=== PATIENT | female | born 1965 | race Caucasian/White ===

== ENCOUNTER 2017-09-09 10:19 | Outpatient (CLI) | payer BC | END 2017-09-09 10:20 | disposition home or self-care (01) | LOC: BICRAD 10:19 | PROVIDERS: ATTEND Podiatrist | DX: M25.572 Pain in left ankle and joints of left foot (principal); M19.072 Primary osteoarthritis, left ankle and foot ==

== ENCOUNTER 2019-02-08 09:21 | Outpatient (CLI) | payer BC | END 2019-02-08 09:22 | disposition home or self-care (01) | LOC: CTENTCT 09:21 | PROVIDERS: ATTEND Specialist | DX: J32.9 Chronic sinusitis, unspecified (principal) | CPT/HCPCS: 70486 ==

== ENCOUNTER 2019-02-11 10:55 | Day surgery (SDC) | payer BC ==
[2019-02-10 14:16] VITALS: BMI 27.1
[2019-02-11] MEDS ORDERED: PHENYLEPHRINE-NS 100 MCG/ML 10 ML SYRINGE ONE (12:05)
[2019-02-11] MEDS ORDERED: Succinylcholine Chloride 20 MG/ML 10 ml SYRINGE FS ONE (12:05)
[2019-02-11] MEDS ORDERED: Lidocaine 1% PF 5 ML VIAL ONE (12:05)
[2019-02-11] MEDS ORDERED: ePHEDrine 50 MG/ML VIAL ONE (12:05)
[2019-02-11] MEDS ORDERED: PROPOFOL 200 MG/20 ML VIAL ONE (12:05)
[2019-02-11] MEDS ORDERED: Dexamethasone 20 MG/5 ML VIAL ONE (12:05)
[2019-02-11] MEDS ORDERED: Ondansetron PF 4 MG/2 ML Vial ONE (12:05)
[2019-02-11] MEDS ORDERED: Labetalol HCl 100 MG/20 ML VIAL ONE (12:05)
[2019-02-11] MEDS ORDERED: Oxymetazoline HCl 0.05% ( 15 ML ) ONE ×2 (12:22→14:56)
[2019-02-11] MEDS ORDERED: Albuterol Sulfate 2.5 mg/3 ml Neb NEB SCH (13:00)
[2019-02-11] MEDS ORDERED: Midazolam HCl 2 mg/2 ml Vial ONE ×2 (14:28→15:56)
[2019-02-11] MEDS ORDERED: Fentanyl 250 MCG/5 ML VIAL ONE (14:51)
[2019-02-11] MEDS ORDERED: Lidocaine 1% w/Epinephrine 1:100K 20 ML VIAL ONE (14:56)
[2019-02-11] MEDS ORDERED: Fentanyl 100 MCG/2 ML VIAL ONE (15:34)
[2019-02-11] MEDS ORDERED: methylPREDNISolone Acetate 40 mg/ml Vial ONE (15:41)
[2019-02-11] MEDS ORDERED: Triamcinolone 40 MG/ML VIAL ONE (16:17)
[2019-02-11] MEDS ORDERED: Albuterol Sulfate 1.25 MG/3 ML NEB ONE (16:43)
[2019-02-11] MEDS ORDERED: HYDROcodone/Acetaminophen 5/325 mg Tablet ONE (17:48)
--- NOTE | 2019-02-11 23:41 | OP ---
DATE OF PROCEDURE: 02/11/2019 PREOPERATIVE DIAGNOSES: Chronic sinusitis, cystic fibrosis, left frontal sinusitis. POSTOPERATIVE DIAGNOSES: Chronic sinusitis, cystic fibrosis, left frontal sinusitis. PROCEDURES PERFORMED: 1. Stereotactic image guided surgery to left nasal endoscopy with frontal sinusotomy. 2. Lothrop procedure, left. PROCEDURE IN DETAIL: After consent was obtained, the patient was identified, brought to the operating room, and placed on the operating table in the supine position. General endotracheal anesthesia was obtained and the patient was positioned for surgery. The nose was decongested with topical decongestant followed by 1% lidocaine with 1:100,000 epinephrine infiltrated in the lateral nasal wall. We then under stereotactic image guidance, identified the infected portion of the superior ethmoid cavity and inferior aspect of the frontal sinus. We then entered the anterior face of that and encountered copious amounts of purulence. This was cultured and then there was significant amount of bony overgrowth, which was addressed with a DCR bur. We then copiously irrigated the sinus and ensured that the cavity was open. We facilitated opening the cavity with the wound and dilation catheter. We then placed steroid laden packing in the cavity to help prevent postoperative adhesion. The patient was awakened, extubated, and taken to the recovery room in stable condition prior to discharge home. Job ID: [id number]
--- NOTE | 2019-02-15 08:46 | EKG ---
Test Reason : PREOP Blood Pressure : / mmHG Vent. Rate : 078 BPM Atrial Rate : 078 BPM P-R Int : 118 ms QRS Dur : 086 ms QT Int : 372 ms P-R-T Axes : -19 002 039 degrees QTc Int : 424 ms Normal sinus rhythm Normal ECG When compared with ECG of 06-FEB-2017 08:04, No significant change was found Confirmed by DR. Ruth Ann SOTO ([id number]) on 02/15/2019 8:45:28 AM Referred By: NOAH Confirmed By:DR. Ruth Ann SOTO
== END 2019-02-11 18:50 | disposition home or self-care (01) ==
LOC: SDC 10:55
PROVIDERS: ATTEND Specialist
PROC: 09DT4ZZ Extraction of Left Frontal Sinus, Percutaneous Endoscopic Approach (ICD-10-PCS; principal; 2019-02-11)
PROC: 8E09XBZ Computer Assisted Procedure of Head and Neck Region (ICD-10-PCS; principal; 2019-02-11)
PROC: 099T8ZZ Drainage of Left Frontal Sinus, Via Natural or Artificial Opening Endoscopic (ICD-10-PCS; principal; 2019-02-11)
DX: J32.1 Chronic frontal sinusitis (principal); E84.9 Cystic fibrosis, unspecified; G44.209 Tension-type headache, unspecified, not intractable; E78.00 Pure hypercholesterolemia, unspecified; I10 Essential (primary) hypertension; J45.909 Unspecified asthma, uncomplicated; K21.9 Gastro-esophageal reflux disease without esophagitis; M19.90 Unspecified osteoarthritis, unspecified site; E11.9 Type 2 diabetes mellitus without complications; Z88.5 Allergy status to narcotic agent; Z91.041 Radiographic dye allergy status; Z88.1 Allergy status to other antibiotic agents; Z91.048 Other nonmedicinal substance allergy status; Z91.040 Latex allergy status; Z79.84 Long term (current) use of oral hypoglycemic drugs; Z79.899 Other long term (current) drug therapy
CPT/HCPCS: 36415; 36416; 85014; 87070; 87077; 87186; 87205; 93005; 93010; 94640; J0131; J1030; J1100; J2001; J2250; J2405; J2704; J3010; J3301; J3490

== ENCOUNTER 2019-03-19 10:04 | Outpatient (CLI) | payer BC ==
--- NOTE | 2019-03-19 11:41 | RAD ---
LEFT FOOT 3 VIEWS: INDICATION: Left foot pain. COMPARISON: Prior exam dated 09/09/2017. FINDINGS: Since the comparison examination, there has been interval performance of an arthrodesis of the great toe metatarsal and medial cuneiform. The instrumentation projects in the expected position without g ross evidence of complication. There is slight worsening of the osteoarthrosis involving the Lisfran c articulation. Alignment appears within normal limits. There is mild great toe MTP osteoarthrosis. No acute fracture is evident. No radiopaque foreign body is grossly evident. IMPRESSION: 1. Interval postoperative changes of the left foot. 2. Worsening mid foot osteoarthrosis. 3. No acute osseous abnormality. POS: [facility]
--- NOTE | 2019-03-19 12:08 | RAD ---
RIGHT FOOT 3 VIEWS: INDICATION: Right lateral foot pain. COMPARISON: None. FINDINGS: No acute fracture or subluxation is evident. Accessory ossicle is seen adjacent to the cuboid. Lisf ranc alignment appears within normal limits. No radiopaque foreign is noted. IMPRESSION: No acute osseous abnormality. POS: [facility]
== END 2019-03-19 10:05 | disposition home or self-care (01) ==
LOC: BICRAD 10:04
PROVIDERS: ATTEND Podiatrist
DX: M79.671 Pain in right foot (principal); M79.672 Pain in left foot; M19.072 Primary osteoarthritis, left ankle and foot; Z98.890 Other specified postprocedural states

== ENCOUNTER 2022-07-08 13:43 | Outpatient (CLI) | payer BC | END 2022-07-08 13:44 | disposition home or self-care (01) | LOC: BICRAD 13:43 | PROVIDERS: ATTEND Podiatrist | DX: M79.674 Pain in right toe(s) (principal); M19.90 Unspecified osteoarthritis, unspecified site ==